=== PATIENT | female | born 1940 | race Caucasian/White ===

== ENCOUNTER 2017-04-10 17:09 | Emergency (ER) | payer OTHER ==
[~2017-04-10] VITALS: Ht 160 cm; Wt 81.7 kg
[~2017-04-10 17:09] MED LIST: ASPIRIN81 M2 PO; CELEBREX 200 M200 MG PO; FUROSEMIDE 20 M20 MG PO; KLOR-CON 1010 MEQ PO; LISINOPRIL10 MG PO; NORCO 5-325 TA1 EACH PO; TRAMADOL 50 MG50 MG PO; VALIUM2 MG PO; VITAMIN D 5050000 I1 PO
[2017-04-10] MEDS ORDERED: MOBIC15 MG PO (17:40)
[2017-04-10] MEDS ORDERED: ZOCOR20 MG PO (17:41)
[2017-04-10 18:59] VITALS: BP 134/56
== END 2017-04-10 19:50 | disposition home or self-care (01) ==
LOC: ER 17:09
DX: S20.211A Contusion of right front wall of thorax, initial encounter (principal); S00.93XA Contusion of unspecified part of head, initial encounter; S40.022A Contusion of left upper arm, initial encounter; I10 Essential (primary) hypertension; M19.90 Unspecified osteoarthritis, unspecified site; Z96.651 Presence of right artificial knee joint; W18.09XA Striking against other object with subsequent fall, initial encounter; Y93.89 Activity, other specified; Y92.89 Other specified places as the place of occurrence of the external cause; Y99.0 Civilian activity done for income or pay